=== PATIENT | male | born 1960 | race Caucasian/White ===

== ENCOUNTER 2016-12-06 11:29 | Emergency (ER) | payer BC ==
[~2016-12-06] VITALS: Ht 177.8 cm; Wt 104.9 kg
[2016-12-06 11:31] VITALS: Ht 177.8 cm; Wt 104.9 kg
[2016-12-06] MEDS ORDERED: ONDANSETRON INJ 2 MG/ML 2 ML VIAL ONE (11:44)
[2016-12-06] MEDS ORDERED: KETOROLAC TROMETHAMINE 30 MG/ML VIAL IV STA (11:56)
[2016-12-06] MEDS ORDERED: HYDROmorphone INJ 1 MG/ML SYR IV STA ×2 (11:56→14:08)
[2016-12-06] MEDS ORDERED: SODIUM CHLORIDE 0.9% 1000ML 2,000 ML IV STA (11:56)
[2016-12-06 12:06] LABS: BASO % 0.2 %; BASO ABS # 0.02 K/uL (0-0.2); COMPLETE YES; EOS % 0.2 %; HEMATOCRIT 46.8 % (42-52); IG% 0.4 %; MEAN CELL VOLUME 84.8 fL (80-100); MEAN CORPUSCULAR HEMOGLOBIN 30.8 pg (25-34); MEAN CORPUSCULAR HGB CONC 36.3 g/dl (32-36); MEAN PLATELET VOLUME 9.3 fL (7.4-10.4); MONO % 4.9 %; NEUT % 76.3 %; PLATELET COUNT 190 K/uL (130-400); RED BLOOD COUNT 5.52 M/uL (4.7-6.1); WHITE BLOOD COUNT 9.98 K/uL (4.8-10.8)
[2016-12-06 12:15] LABS: BUN/CREATININE RATIO 17.8 (10-20); CALCIUM 9.4 mg/dl (8.5-10.1); CREATININE 1.2 mg/dl (0.60-1.40); POTASSIUM 3.5 mmol/L (3.5-5.1)
[2016-12-06 12:17] LABS: ALB/GLOB RATIO 1.2 (0.9-2)
[2016-12-06 12:35] LABS: MANUAL MICROSCOPIC REQUIRED? YES; URINE APPEARANCE CLOUDY (CLEAR); URINE BILIRUBIN NEG (NEG); URINE COLOR YELLOW; URINE NITRITE NEG (NEG); URINE SPECIFIC GRAVITY >= 1.030 (1.000-1.030); UROBILINOGEN NEG (NEG)
[2016-12-06 12:40] LABS: REVIEW REQ? NO
--- NOTE | 2016-12-06 12:40 | DIAGNOSTIC IMAGING REPORT ---
ABDOMEN AND PELVIS CT WITHOUT CONTRAST CT DOSE: 1251.73 mGycm HISTORY: Abdominal pain right flank pain, hematuria TECHNIQUE: Multiaxial CT images of the abdomen and pelvis were performed without the use of intravenous and oral contrast according to the standard department stone protocol. COMPARISON STUDY: None. FINDINGS: Lung bases are clear. Liver spleen and pancreas are grossly unremarkable within limitations of a nonenhanced scan. Left kidney demonstrates a potential complex cyst at the lower pole. Right kidney shows mild hydroureteronephrosis. There is a obstructing calculus right ureteral vesicle junction measuring 2.5 mm. Bladder is midline. There is no free fluid within the pelvic cul-de-sac. Bowel pattern is nonobstructive throughout. The appendix is normal. IMPRESSION: 1. 2.5 mm obstructing calculus distal right ureter slightly proximal to the right ureterovesical junction 2. Mild right hydroureteronephrosis. 3. Slightly complex cyst/nodule lower pole left kidney Electronically signed by: Jeronimo Booker M.D. 12/06/2016 12:39 PM Dictated Date/Time: 12/06/2016 12:36 PM
[2016-12-06 12:47] LABS: URINE AMORPHOUS SEDIMENT PRESENT (NONE PRSENT)
[2016-12-06 12:49] LABS: URINE BACTERIA 2+ (NEG)
[2016-12-06] MEDS ORDERED: TAMSULOSIN HCL 0.4 MG CAP PO ONE (13:30)
[2016-12-06 14:13] VITALS: BP 149/99; PULSE 76; O2SAT 96
[2016-12-06] MEDS ORDERED: OXYC1TAB3 PO (14:20)
[2016-12-06] MEDS ORDERED: ONDA4TAB10 SL (14:20)
[2016-12-06] MEDS ORDERED: TAMS0.4C38 PO (14:20)
--- NOTE | 2016-12-06 14:21 | EMERGENCY ROOM VISIT NOTE ---
ED Visit Note First contact with patient: 11:49 CHIEF COMPLAINT: Right flank and abdominal pain 4 hours HISTORY OF PRESENT ILLNESS: Patient is a 56-year-old white male who generally enjoys good health, who presents to the emergency department accompanied by his family for evaluation of the abrupt onset of right-sided abdominal pain this morning. Patient states that he has been feeling well and was in his usual state of health when he woke up this morning. He had some coffee and while walking his dog, noted fairly insidious onset of pain in the right flank. It began to radiate into his abdomen and into the suprapubic area where he notes some pressure. He reports associated nausea and vomiting. He rates the pain a 10/10. He states he has the urge to urinate and have a bowel movement. He did move his bowels this morning prior to the onset of the pain and states that it was normal. He denies any dysuria, frequency or urgency. He has never had pain similar to this previously. He denies any family history of kidney stones , reports that his mother had her gallbladder removed. He denies any chest pain , palpitations or shortness of breath. No fever. REVIEW OF SYSTEMS: Review of systems as per HPI. All other systems reviewed were negative. 10 systems reviewed. PMH: The patient is healthy; there is no significant medical or surgical history. SOCIAL HISTORY: Patient lives at home with his family. Retired. He does not smoke PHYSICAL EXAM: Vital Signs: Reviewed Nurse's notes. CONSTITUTIONAL: Patient is an uncomfortable-appearing 56-year-old white male who is awake and alert and laying on the gurney in mild distress due to his right-sided abdominal pain. EYES: Pupils equal, round, reactive to light and accommodation. EOMs intact without nystagmus. Sclera are anicteric. ENT: Tympanic membranes intact, with normal landmarks. External canals are clear. Oral and nasopharynx are clear. Mucous membranes are moist, no lesions , tongue and gums appear normal. NECK: No bruits auscultated. Supple without lymphadenopathy. No thyromegaly. No meningeal signs. Full active range of motion without discomfort. CARDIOVASCULAR: Regular rate and rhythm, with normal S1 and S2, no murmur or gallop or rub is heard. No carotid bruits auscultated. No JVD. Peripheral pulses easily palpable. RESPIRATORY: Breath sounds equal and clear to auscultation without wheezes, rales, or rhonchi heard. Full and equal chest expansion without accessory muscle use or retractions. ABDOMEN: Bowel sounds are present. Abdomen is soft, obese, slightly tender in the right mid abdomen, without guarding, rebound or rigidity. No pulsatile masses. INTEGUMENTARY: No lesions or rash, normal skin turgor. LYMPH: No lymphadenopathy. EMERGENCY DEPARTMENT COURSE: The patient was seen and evaluated as above. IV access was obtained and he was hydrated with normal saline solution. He received a total of 2 L in the emergency department. Nursing staff administered Zofran 4 mg IV prior to my assessment of the patient. He was given Toradol 30 mg and allowed a 1 mg IV 2. Urine dip noted 250 of blood. CBC, CMP and lipase were drawn. Given the hematuria and right flank pain, CT scan of the abdomen and pelvis was ordered. Laboratory studies revealed a normal white count at 9900. H&H is normal. Electrolytes are within normal limits. BUN and creatinine 21 and 1.2. Liver functions are not elevated. Lipase is normal. Urinalysis notes trace glucose, 2+ occult blood, 10-30 rbc's and 2+ bacteria, without any other indicators for infection. CT scan of the abdomen and pelvis noted a 2.5 mm obstructing calculus in the distal right ureter slightly proximal to the right UVJ with resultant mild right hydroureteronephrosis. Appendix is visualized and was normal. The patient and his family were made aware of the results of his laboratory and diagnostic imaging studies. The patient did report some right low back pain and was given a second dose of Dilaudid as noted above. He was given Flomax 0.4 mg orally, oral fluids and was issued a urine strainer. Supportive care measures were discussed. The patient reported good relief of his pain and rated a 0/10 at discharge. He was educated on use of medications at home including Flomax, Zofran and oxycodone. He was advised to increase his fluid intake and to follow-up with his primary care provider for recheck. Certainly he should return to the emergency department for worsening symptoms. Differential diagnoses entertained included UTI, pyelonephritis, renal colic, appendicitis, acute cholecystitis, cholelithiasis, bowel obstruction, perforations, musculoskeletal injury, hernia, among others. ABDOMEN AND PELVIS CT WITHOUT CONTRAST CT DOSE: 1251.73 mGycm HISTORY: Abdominal pain right flank pain, hematuria TECHNIQUE: Multiaxial CT images of the abdomen and pelvis were performed without the use of intravenous and oral contrast according to the standard department stone protocol. COMPARISON STUDY: None. FINDINGS: Lung bases are clear. Liver spleen and pancreas are grossly unremarkable within limitations of a nonenhanced scan. Left kidney demonstrates a potential complex cyst at the lower pole. Right kidney shows mild hydroureteronephrosis. There is a obstructing calculus right ureteral vesicle junction measuring 2.5 mm. Bladder is midline. There is no free fluid within the pelvic cul-de-sac. Bowel pattern is nonobstructive throughout. The appendix is normal. IMPRESSION: 1. 2.5 mm obstructing calculus distal right ureter slightly proximal to the right ureterovesical junction 2. Mild right hydroureteronephrosis. 3. Slightly complex cyst/nodule lower pole left kidney Current/Historical Medications Scheduled Tamsulosin Hcl (Flomax), 0.4 MG PO DAILY Scheduled PRN Ondasetron Odt (Zofran Odt), 4 MG SL Q6H PRN for Nausea or Vomiting Oxycodone Immediate Rel Tab (Roxicodone Ir), 1-2 TAB PO Q4H PRN for Severe Pain Allergies Coded Allergies: No Known Allergies (Unverified , 12/06/16) Vital Signs Date Time Temp Pulse Resp B/P Pulse Ox O2 Delivery O2 Flow Rate FiO2 12/06/16 14:13 76 20 149/99 96 Room Air 12/06/16 13:01 66 20 129/69 93 12/06/16 11:31 65 22 154/69 95 Room Air Laboratory Results 12/06/16 11:40 Red Blood Count 5.52, Mean Corpuscular Volume 84.8, Mean Corpuscular Hemoglobin 30.8, Mean Corpuscular Hemoglobin Concent 36.3, Mean Platelet Volume 9.3, Neutrophils (%) (Auto) 76.3, Lymphocytes (%) (Auto) 18.0, Monocytes (%) (Auto) 4.9, Eosinophils (%) (Auto) 0.2, Basophils (%) (Auto) 0.2, Neutrophils # (Auto) 7.61, Lymphocytes # (Auto) 1.80, Monocytes # (Auto) 0.49, Eosinophils # (Auto) 0.02, Basophils # (Auto) 0.02 12/06/16 11:40 Test 12/06/16 11:40 12/06/16 11:50 White Blood Count 9.98 K/uL (4.8-10.8) Red Blood Count 5.52 M/uL (4.7-6.1) Hemoglobin 17.0 g/dL (14.0-18.0) Hematocrit 46.8 % (42-52) Mean Corpuscular Volume 84.8 fL (80-100) Mean Corpuscular Hemoglobin 30.8 pg (25-34) Mean Corpuscular Hemoglobin Concent 36.3 g/dl (32-36) Platelet Count 190 K/uL (130-400) Mean Platelet Volume 9.3 fL (7.4-10.4) Neutrophils (%) (Auto) 76.3 % Lymphocytes (%) (Auto) 18.0 % Monocytes (%) (Auto) 4.9 % Eosinophils (%) (Auto) 0.2 % Basophils (%) (Auto) 0.2 % Neutrophils # (Auto) 7.61 K/uL (1.4-6.5) Lymphocytes # (Auto) 1.80 K/uL (1.2-3.4) Monocytes # (Auto) 0.49 K/uL (0.11-0.59) Eosinophils # (Auto) 0.02 K/uL (0-0.5) Basophils # (Auto) 0.02 K/uL (0-0.2) RDW Standard Deviation 38.5 fL (36.4-46.3) RDW Coefficient of Variation 12.5 % (11.5-14.5) Immature Granulocyte % (Auto) 0.4 % Immature Granulocyte # (Auto) 0.04 K/uL (0.00-0.02) Anion Gap 9.0 mmol/L (3-11) Est Creatinine Clear Calc Drug Dose 83.4 ml/min Estimated GFR () 77.9 Estimated GFR (Non- 67.2 BUN/Creatinine Ratio 17.8 (10-20) Calcium Level 9.4 mg/dl (8.5-10.1) Total Bilirubin 0.7 mg/dl (0.2-1) Aspartate Amino Transf (AST/SGOT) 21 U/L (15-37) Alanine Aminotransferase (ALT/SGPT) 52 U/L (12-78) Alkaline Phosphatase 39 U/L (45-117) Total Protein 8.2 gm/dl (6.4-8.2) Albumin 4.5 gm/dl (3.4-5.0) Globulin 3.7 gm/dl (2.5-4.0) Albumin/Globulin Ratio 1.2 (0.9-2) Lipase 85 U/L (73-393) Urine Color YELLOW Urine Appearance CLOUDY (CLEAR) Urine pH 5.0 (4.5-7.5) Urine Specific [place] >= 1.030 (1.000-1.030) Urine Protein TRACE (NEG) Urine Glucose (UA) TRACE (NEG) Urine Ketones NEG (NEG) Urine Occult Blood 2+ (NEG) Urine Nitrite NEG (NEG) Urine Bilirubin NEG (NEG) Urine Urobilinogen NEG (NEG) Urine Leukocyte Esterase NEG (NEG) Urine RBC 10-30 /hpf (0-4) Urine WBC 1-5 /hpf (0-5) Urine Epithelial Cells 0-5 /lpf (0-5) Urine Amorphous Sediment PRESENT (NONE PRSENT) Urine Bacteria 2+ (NEG) Medications Administered Medications (Trade) Dose Ordered Sig/Pili Route Start Time Stop Time Status Last Admin Dose Admin Ondansetron HCl 4 mg 4 mg STK-MED ONCE .ROUTE 12/06/16 11:44 12/06/16 11:48 DC 12/06/16 11:50 4 MG Sodium Chloride (Nss 1000ml) 2,000 ml @ 999 mls/hr Q2H1M STAT IV 12/06/16 11:56 12/06/16 13:56 DC 12/06/16 11:56 999 MLS/HR Ketorolac Tromethamine (Toradol Inj) 30 mg NOW STAT IV 12/06/16 11:56 12/06/16 12:00 DC 12/06/16 12:13 30 MG Hydromorphone HCl (Dilaudid Inj) 1 mg NOW STAT IV 12/06/16 11:56 12/06/16 12:00 DC 12/06/16 12:13 1 MG Tamsulosin HCl (Flomax Cap) 0.4 mg NOW ONCE PO 12/06/16 13:30 12/06/16 13:31 DC 12/06/16 14:13 0.4 MG Hydromorphone HCl (Dilaudid Inj) 1 mg NOW STAT IV 12/06/16 14:08 12/06/16 14:18 DC 12/06/16 14:36 10 MG Departure Information Impression Primary Impression: Right ureteral calculus Prescriptions Ondasetron Odt (ZOFRAN ODT) 4 Mg Tab 4 MG SL Q6H Y for Nausea or Vomiting, #20 TAB Prov: Mary Quiroz PA 12/06/16 Tamsulosin Hcl (FLOMAX) 0.4 Mg Cap 0.4 MG PO DAILY, #14 CAP Prov: Mary Quiroz PA 12/06/16 Oxycodone Immediate Rel Tab (ROXICODONE IR) 5 Mg Tab 1-2 TAB PO Q4H Y for Severe Pain, #30 TAB For Initial Treatment Prov: Mary Quiroz PA 12/06/16 Referrals Devika Villalta D.O. (PCP) Patient Instructions [facility] Additional Instructions DO NOT drive, drink alcohol, operate machinery, or perform dangerous activities today. You were given medications in the ER that can affect your ability to safely function or operate a vehicle. Oxycodone Immediate Release (OxyIR) 5mg: Take 1-2 pills every four hours for pain. Avoid alcohol, operating machinery or dangerous equipment, working on ladders or roofs, DRIVING, or situations where being under the influence may be dangerous. It is recommended to use an [id number] stool softener such as Colace, 100mg twice daily while taking this medication to avoid constipation. Zofran(odansetron) tablets 4mg: Take one and allow it to dissolve in your mouth every four to six hours as needed for nausea or vomiting. Flomax 0.4 m tablet daily until the stone passes. Ibuprofen(Motrin, Advil) may be used for fever or pain. Use 600mg every six hours as needed. Take with food. Avoid using more than 2400mg in a 24 hour period. Do not use 2400mg per day for more than three consecutive days without physician direction. Prolonged inappropriate use can lead to stomach upset or ulcers. This medication can be taken if you need to drive, work, or perform activities which may be dangerous when taking narcotic pain medication. (AND/OR) Acetaminophen(Tylenol) may be used for fever or pain. Use 1000mg every six hours as needed. Avoid using more than 4000mg in a 24 hour period. This medication can be taken if you need to drive, work, or perform activities which may be dangerous when taking narcotic pain medication. Strain your urine and collect all the stones or debris for the urologists. Rest and avoid strenuous activity until your stone passes and symptoms resolve. Drink plenty of fluids. Continue current medications. Return to the ER for worsening abdominal or back pain, vomiting, fevers, passing out, or as needed. Follow up with your primary care physician in 3-5 days for recheck.
== END 2016-12-06 14:40 | disposition home or self-care (01) ==
LOC: C.EDB 11:31
DX: N20.1 Calculus of ureter (principal)